=== PATIENT | female | born 1955 ===

== ENCOUNTER → 2020-06-19 11:12 | Outpatient (BNVA) | payer MEDICARE, MEDICAID, SELFPAY | PROVIDERS: PCP Physician Assistant; Visit Provider Hospitalist | DX: J44.1 Chronic obstructive pulmonary disease with (acute) exacerbation (principal); J38.3 Other diseases of vocal cords; J40 Bronchitis, not specified as acute or chronic | CPT/HCPCS: 99212 ==

== ENCOUNTER 2020-09-25 12:55 | Outpatient (REF) | payer MEDICARE, MEDICAID, SELFPAY ==
--- NOTE | 2020-09-25 | PFT_ITS ---
Forced vital capacity, FEV1, QSL69-57, and MVV are all normal. Post bronchodilator therapy, no significant change. Total lung capacity and residual volume normal. Diffusion capacity slightly decreased. CONCLUSION: Normal pulmonary function test. Slight decrease in diffusion capacity may be due to technical reason or due to non-pulmonary factors. Clinical correlation is recommended. MD TRACY Leos/JOELLEN / [id number]
== END 2020-09-25 12:56 | disposition home or self-care (01) ==
LOC: HO.RESP 12:55
PROVIDERS: Visit Provider Hospitalist
DX: J41.0 Simple chronic bronchitis (principal); R06.02 Shortness of breath
CPT/HCPCS: 94060; 94727; 94729; 99212

== ENCOUNTER → 2021-01-04 10:49 | Outpatient (BNVA) | payer MEDICARE, MEDICAID, SELFPAY | PROVIDERS: PCP Physician Assistant; Visit Provider Hospitalist | DX: J44.1 Chronic obstructive pulmonary disease with (acute) exacerbation (principal); J38.3 Other diseases of vocal cords; R05 Cough; Z79.899 Other long term (current) drug therapy | CPT/HCPCS: 99212 ==

== ENCOUNTER 2021-02-05 10:59 | Outpatient (REF) | payer MEDICARE, MEDICAID, SELFPAY ==
[2021-02-05 12:22] LABS: MANUAL DIFF FLAG NO
[2021-02-05 12:38] LABS: Basophils Percent Auto 0.6 % (0-2); Eosinophils Percent Auto 0.6 % (0-4); Hematocrit 40.5 % (37-47); Hemoglobin 13.8 g/dl (12.0-16.0); Imm Gran Abs Auto 0.03 X10*3/uL (0.00-0.03); Imm Gran Pct Auto 0.4 % (0.0-0.4); Lymphocytes Absolute Auto 1.4 X10*3/uL (1.2-4.9); Lymphocytes Percent Auto 19.6 % (20-40); Mean Corpuscular HGB Conc 34.1 g/dl (31.0-35.0); Mean Corpuscular Hemoglobin 32.4 pg (27.0-33.0); Mean Corpuscular Volume 95.1 fL (80-98); Monocytes Absolute Auto 0.8 X10*3/uL (0.1-1.2); Monocytes Percent Auto 11.1 % (2-11); Neutrophils Absolute Auto 4.7 X10*3/uL (2.0-8.3); Neutrophils Percent Auto 67.7 % (45-73); Platelet Count 241 X10*3/uL (160-400); Red Blood Count 4.26 X10*6/uL (4.20-5.50); Red Cell Distribution Width 12.3 % (11.0-16.0); White Blood Count 6.9 X10*3/uL (4.8-10.8)
[2021-02-05 13:44] LABS: Erythrocyte Sedimentation Rate 2 MM/HR (0-20)
[2021-02-08 14:06] LABS: IgA 179 mg/dL (70-320); IgG 705 mg/dL (600-1540); IgM 144 mg/dL (50-300)
[2021-02-08 19:52] LABS: Immunoglobulin G Subclass 1 395 mg/dL (382-929); Immunoglobulin G Subclass 2 167 mg/dL (241-700); Immunoglobulin G Subclass 3 17 mg/dL (22-178); Immunoglobulin G Subclass 4 36.9 mg/dL (4-86); Immunoglobulin G Total 715 mg/dL (600-1540)
[2021-02-09 05:26] LABS: Immunoglobulin E 40 kU/L (<OR=114)
== END 2021-02-05 11:00 | disposition home or self-care (01) ==
LOC: HO.LAB 10:59
PROVIDERS: PCP Physician Assistant; Visit Provider Hospitalist
DX: J44.1 Chronic obstructive pulmonary disease with (acute) exacerbation (principal); R05.9 Cough, unspecified; J38.3 Other diseases of vocal cords
CPT/HCPCS: 36415; 82784; 82785; 85025; 85652; 86003; 99212

== ENCOUNTER → 2021-05-11 11:21 | Outpatient (BNVA) | payer MEDICARE, MEDICAID, SELFPAY | PROVIDERS: Visit Provider Hospitalist | DX: J44.1 Chronic obstructive pulmonary disease with (acute) exacerbation (principal); J40 Bronchitis, not specified as acute or chronic; R05.9 Cough, unspecified; K21.9 Gastro-esophageal reflux disease without esophagitis; J38.3 Other diseases of vocal cords | CPT/HCPCS: 99212 ==

== ENCOUNTER → 2021-09-06 14:17 | Outpatient (BNVA) | payer MEDICARE, MEDICAID, SELFPAY | PROVIDERS: Visit Provider Hospitalist | DX: J44.1 Chronic obstructive pulmonary disease with (acute) exacerbation (principal); J38.3 Other diseases of vocal cords; K21.9 Gastro-esophageal reflux disease without esophagitis; Z79.899 Other long term (current) drug therapy | CPT/HCPCS: 99212 ==

== ENCOUNTER → 2022-01-14 13:03 | Outpatient (BNVA) | payer MEDICARE, MEDICAID, SELFPAY | PROVIDERS: Visit Provider Hospitalist | DX: J44.1 Chronic obstructive pulmonary disease with (acute) exacerbation (principal); J38.3 Other diseases of vocal cords; K21.9 Gastro-esophageal reflux disease without esophagitis; Z79.899 Other long term (current) drug therapy | CPT/HCPCS: 99212 ==

== ENCOUNTER → 2022-09-26 11:22 | Outpatient (BNVA) | payer MEDICARE, MEDICAID, SELFPAY | PROVIDERS: PCP Family Medicine; Visit Provider Hospitalist | DX: R05.3 Chronic cough (principal); J38.3 Other diseases of vocal cords; K21.9 Gastro-esophageal reflux disease without esophagitis | CPT/HCPCS: 99212 ==

== ENCOUNTER 2023-06-07 11:33 | Outpatient (AMB) | payer MEDICARE, MEDICAID, SELFPAY ==
--- NOTE | 2023-06-07 11:40 | MHC.OFFVIS ---
Intake Vital Signs 06/07/23 11:43 Height 5 ft 3 in Weight 140 lb BMI 24.8 Pulse 90 Pulse Source Pulse Oximeter Pulse Oximetry (%) 96 Oxygen Delivery Method Room Air Intake Visit Reasons: Cough Leather Roller Required: No Allergies No Known Allergies Allergy (Verified 06/07/23 11:44) HPI HPI Comments History of Present Illness Details The patient is a 68 y/o woman with a history of vocal cord dysfunction in addition to COPD. 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 The surgery have been many years ago and I do not have any documentation. She has been using the Breo with good effect. She also has been using the Tessalon Perles which have effectively helped her cough. Her cough spasms resulting in gagging and also dizziness. There happen more often specially at nighttime. She feels stressed is also likely contributing to her worsening cough. We did talk about potentially performing a bronchoscopy if no better. She does describe a fullness in her throat. We did perform a spirometry which demonstrated significant small airways disease. She then responded very good to DuoNeb therapy. Her breathing also improved. 09/07/2021 the patient is here for a pulmonary follow-up visit. She did follow-up with ENT. Did diagnose her with the vocal cord paralysis and also with laryngeal spasms. She was then referred to speech therapy. It is not clear if she went for 1 session or she had multiple sessions. She still concerned about her respiratory status. Explained to her that laryngeal spasms and vocal cord paralysis are very difficult to treat due to limited options. However, she speech therapy is very important in to continue. Therefore will refer her to the speech pathologist here at [place]. In the meantime she continues on the Breo. She does have An obstructive airway component and therefore the Breo has been helpful in controlling those symptoms. She has not required any prednisone which is reassuring. 01/14/2022 the patient is here I did bookstore and she tries to refrain from coughing as much as possible. She will be starting speech therapy soon. In the meantime she does continue to use the Breo with good effect. The patient also can use cough syrup with codeine as needed for further cough suppression. Again, we did review her last CT scan was back in May 2021 without any pulmonary parenchyma noted. 09/26/2022 The patient is here for a pulmonary follow up visit. The patient is doing well. Still having issues with dyspnea, mild to moderate. Secondary to her VCD and partial paralysis. She did f/u with [facility]. they did not recommend the botox based on the fact that it may worsen the VCD. She has been participating with speech therapy. Still has an intermittent cough, moderate in severity. Will try Benzonates as needed. She also responded well to magic mouthwash, although too expensive. Will rx Lidocaine and she can use the goodrx card. 06/07/2023 the patient is here for a pulmonary follow-up visit. 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 She does struggle with this because is hard for her to breathe or laugh out loud because of the difficulty with her ventilation and also because it worsens her cough. She did not really get much recommendations at [facility]. They recommended to continue with the speech therapy. At this point she is also using the Breo. She feels the Breo has been somewhat effective for. She did try Flovent it was not that helpful. We talked about different devices that can provide her some relief. One of those devices called the breather. Is meant to help strengthen the muscles of the larynx the lungs and also of the vocal cords. The patient will talk to her speech therapy to see if the something that they recommend as well and she consider either getting it covered or buying it [id number]. I did give her information about it. Therefore will continue with the current respiratory therapy and will follow-up in the fall. The patient has any issues prior to that she will call the office for an earlier assessment. [facility] Medical History (Updated 06/07/23 @ 18:15 by Nick Flores MD) Vocal cord paralysis Laryngospasm GERD (gastroesophageal reflux disease) Chronic cough Vocal cord dysfunction COPD (chronic obstructive pulmonary disease) Bronchitis Social History (Updated 09/26/22 @ 11:28 by ANTHONY Beckett) Patient Tobacco Use Status: Never used Tobacco Review of Systems Const Denies night sweats ENT Denies change in voice, Denies lip swelling, Denies mouth pain, Reports nasal congestion, Reports nasal discharge and Denies tongue swelling Card Denies chest pain, Denies dyspnea and Reports dyspnea on exertion Resp Denies chest congestion, Reports cough, Denies dyspnea, Reports dyspnea on exertion and Reports stridor GI Denies abdominal pain Musc Denies no additional complaints Neuro Denies Neuro-related abnormal movements Psych Denies no additional complaints Fritz/Lymph Denies easy bleeding and Denies lymphadenopathy Aller/Immun Denies lip swelling and Denies tongue swelling Physical Exam Vital Signs: Last Vital Signs Pulse 90 06/07/23 11:43 Pulse Ox 96 06/07/23 11:43 Oxygen Delivery Method Room Air 06/07/23 11:43 BMI result Body Mass Index 24.8 Const General: alert Neck Neck: Yes normal visual inspection, Yes full ROM, Yes no lymphadenopathy, Yes supple and Yes other (+stridor) Chest Chest palpation & inspection: normal inspection of the chest Resp Effort & Inspection: normal respiratory effort and stridor Auscultation: no rhonchi, no wheezes and diminished lung sounds Cardio Rate: regular rate Rhythm: regular rhythm Heart sounds: S1 normal heart sound present and S2 normal heart sound present GI Palpation (GI): Soft to palpation and nontender Auscultation: normal bowel sounds Skin General skin exam: rashes and/or lesions noted Assessment & Plan Assessment & Plan (1) Chronic cough: Code(s): R05 - Cough (2) Vocal cord dysfunction: Code(s): J38.3 - Other diseases of vocal cords (3) GERD (gastroesophageal reflux disease): Code(s): K21.9 - Gastro-esophageal reflux disease without esophagitis Qualifiers: Esophagitis presence: without esophagitis Qualified Code(s): K21.9 - Gastro-esophageal reflux disease without esophagitis (4) Vocal cord paralysis: Code(s): J38.00 - Paralysis of vocal cords and larynx, unspecified Plan continue Breo reflux diet speech therapy as needed consider breathing device/ The breather to strenghen her respiratory muscles Spirometry next visit F/U Fall 2023 Coding Level of Care Code Est Pt Level 4 (71426) Diagnoses Chronic cough R05 Vocal cord dysfunction J38.3 Gastroesophageal reflux disease without esophagitis K21.9 Esophagitis presence: without esophagitis Vocal cord paralysis J38.00 Time Spent (min) 19
[2023-06-07 11:43] VITALS: PULSE 90; O2SAT 96; BMI 24.8
== END 2023-06-07 12:11 | disposition home or self-care (01) ==
PROVIDERS: PCP Family Medicine; Visit Provider Hospitalist
DX: R05.9 Cough, unspecified (principal); J38.3 Other diseases of vocal cords; K21.9 Gastro-esophageal reflux disease without esophagitis; J38.00 Paralysis of vocal cords and larynx, unspecified
CPT/HCPCS: 99214

== ENCOUNTER → 2023-06-07 11:33 | Outpatient (BNVA) | payer MEDICARE, MEDICAID, SELFPAY | PROVIDERS: PCP Family Medicine; Visit Provider Hospitalist | DX: J38.3 Other diseases of vocal cords (principal); R05.9 Cough, unspecified; K21.9 Gastro-esophageal reflux disease without esophagitis; J38.00 Paralysis of vocal cords and larynx, unspecified | CPT/HCPCS: 99212 ==

== ENCOUNTER 2024-02-07 11:28 | Outpatient (AMB) | payer MEDICARE, MEDICAID, SELFPAY ==
[2024-02-07 11:36] VITALS: BP 118/70; PULSE 89; O2SAT 96; BMI 24.8
--- NOTE | 2024-02-07 11:36 | A.OFFVIS_ITS ---
Vital Signs 02/07/24 11:36 Height 5 ft 3 in Weight 139 lb 15.896 oz BMI 24.8 BP 118/70 Blood Pressure Location Rt brachial Position Sitting Pulse 89 Pulse Source Pulse Oximeter Pulse Oximetry (%) 96 Oxygen Delivery Method Room Air Intake Visit Reasons: Cough Gis Web Developer Required: No Allergies No Known Allergies Allergy (Verified 02/07/24 11:38) HPI Comments Details: The patient is a 69 y/o woman with a history of vocal cord dysfunction in addition to COPD. 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 The surgery have been many years ago and I do not have any documentation. She has been using the Breo with good effect. She also has been using the Tessalon Perles which have effectively helped her cough. Her cough spasms resulting in gagging and also dizziness. There happen more often specially at nighttime. She feels stressed is also likely contributing to her worsening cough. We did talk about potentially performing a bronchoscopy if no better. She does describe a fullness in her throat. We did perform a spirometry which demonstrated significant small airways disease. She then responded very good to DuoNeb therapy. Her breathing also improved. 09/07/2021 the patient is here for a pulmonary follow-up visit. She did follow-up with ENT. Did diagnose her with the vocal cord paralysis and also with laryngeal spasms. She was then referred to speech therapy. It is not clear if she went for 1 session or she had multiple sessions. She still concerned about her respiratory status. Explained to her that laryngeal spasms and vocal cord paralysis are very difficult to treat due to limited options. However, she speech therapy is very important in to continue. Therefore will refer her to the speech pathologist here at [place]. In the meantime she continues on the Breo. She does have An obstructive airway component and therefore the Breo has been helpful in controlling those symptoms. She has not required any prednisone which is reassuring. 01/14/2022 the patient is here I did bookstore and she tries to refrain from coughing as much as possible. She will be starting speech therapy soon. In the meantime she does continue to use the Breo with good effect. The patient also can use cough syrup with codeine as needed for further cough suppression. Again, we did review her last CT scan was back in May 2021 without any pulmonary parenchyma noted. 09/26/2022 The patient is here for a pulmonary follow up visit. The patient is doing well. Still having issues with dyspnea, mild to moderate. Secondary to her VCD and partial paralysis. She did f/u with [facility]. they did not recommend the botox based on the fact that it may worsen the VCD. She has been participating with speech therapy. Still has an intermittent cough, moderate in severity. Will try Benzonates as needed. She also responded well to magic mouthwash, although too expensive. Will rx Lidocaine and she can use the goodrx card. 06/07/2023 the patient is here for a pulmonary follow-up visit. 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 She does struggle with this because is hard for her to breathe or laugh out loud because of the difficulty with her ventilation and also because it worsens her cough. She did not really get much recommendations at [facility]. They recommended to continue with the speech therapy. At this point she is also using the Breo. She feels the Breo has been somewhat effective for. She did try Flovent it was not that helpful. We talked about different devices that can provide her some relief. One of those devices called the breather. Is meant to help strengthen the muscles of the larynx the lungs and also of the vocal cords. The patient will talk to her speech therapy to see if the something that they recommend as well and she consider either getting it covered or buying it [id number]. I did give her information about it. Therefore will continue with the current respiratory therapy and will follow-up in the fall of 2023. The patient has any issues prior to that she will call the office for an earlier assessment. 02/07/2024 the patient is here for a pulmonary follow-up visit. Overall the patient had been doing well. She continues to have chronic issues with vocal cord dysfunction but she is working closely with speech therapy and they have been very helpful in helping her deal better with her symptoms. In addition to that she continues on the Breo inhaler. This has been helpful. No recent imaging studies to review at this time. The patient is having issue with her knees. She is trying to avoid knee surgery. I do agree that general anesthesia and intubation could potentially irritate the vocal cords further. No recent imaging studies to review at this time. Patient will return in about 6-8 months. If she has any issues prior to that she will call for an earlier asses sment. [facility] Medical History (Updated 06/07/23 @ 18:15 by Nick Flores MD) Vocal cord paralysis Laryngospasm GERD (gastroesophageal reflux disease) Chronic cough Vocal cord dysfunction COPD (chronic obstructive pulmonary disease) Bronchitis Social History (Updated 09/26/22 @ 11:28 by Itzel Bethea [facility]) Patient Tobacco Use Status: Never used Tobacco Review of Systems Const Denies night sweats ENT Denies change in voice, Denies lip swelling, Denies mouth pain, Reports nasal congestion, Reports nasal discharge and Denies tongue swelling Card Denies chest pain, Denies dyspnea and Reports dyspnea on exertion Resp Denies chest congestion, Reports cough, Denies dyspnea, Reports dyspnea on exertion and Reports stridor GI Denies abdominal pain Musc Denies no additional complaints Neuro Denies Neuro-related abnormal movements Psych Denies no additional complaints Fritz/Lymph Denies easy bleeding and Denies lymphadenopathy Aller/Immun Denies lip swelling and Denies tongue swelling Physical Exam Vital Signs: Last Vital Signs Pulse 89 02/07/24 11:36 BP 118/70 02/07/24 11:36 Pulse Ox 96 02/07/24 11:36 Oxygen Delivery Method Room Air 02/07/24 11:36 BMI result Body Mass Index 24.8 Const General: alert Neck Neck: Yes normal visual inspection, Yes full ROM, Yes no lymphadenopathy, Yes supple and Yes other (+stridor) Chest Chest palpation & inspection: normal inspection of the chest Resp Effort & Inspection: normal respiratory effort and no stridor Auscultation: no rhonchi, no wheezes and diminished lung sounds Cardio Rate: regular rate Rhythm: regular rhythm Heart sounds: S1 normal heart sound present and S2 normal heart sound present GI Palpation (GI): Soft to palpation and nontender Auscultation: normal bowel sounds Skin General skin exam: rashes and/or lesions noted Assessment & Plan Assessment & Plan (1) Chronic cough: Code(s): R05 - Cough Category: Medical (2) Vocal cord dysfunction: Code(s): J38.3 - Other diseases of vocal cords Category: Medical (3) GERD (gastroesophageal reflux disease): Code(s): K21.9 - Gastro-esophageal reflux disease without esophagitis Category: Medical Qualifiers: Esophagitis presence: without esophagitis Qualified Code(s): K21.9 - Gastro-esophageal reflux disease without esophagitis (4) Vocal cord paralysis: Code(s): J38.00 - Paralysis of vocal cords and larynx, unspecified Category: Medical Plan continue Breo reflux diet speech therapy as needed consider breathing device/ The breather to strenghen her respiratory muscles Spirometry next visit F/U 8-10 months Coding Level of Care Code Est Pt Level 4 (66192) Diagnoses Chronic cough R05 Vocal cord dysfunction J38.3 Gastroesophageal reflux disease without esophagitis K21.9 Esophagitis presence: without esophagitis Vocal cord paralysis J38.00 Time Spent (min) 16
== END 2024-02-07 11:55 | disposition home or self-care (01) ==
PROVIDERS: PCP Family Medicine; Visit Provider Hospitalist
DX: R05.9 Cough, unspecified (principal); J38.3 Other diseases of vocal cords; K21.9 Gastro-esophageal reflux disease without esophagitis; J38.00 Paralysis of vocal cords and larynx, unspecified
CPT/HCPCS: 99214

== ENCOUNTER → 2024-02-07 11:28 | Outpatient (BNVA) | payer MEDICARE, MEDICAID, SELFPAY | PROVIDERS: PCP Family Medicine; Visit Provider Hospitalist | DX: J38.3 Other diseases of vocal cords (principal); J38.00 Paralysis of vocal cords and larynx, unspecified; R05.3 Chronic cough; K21.9 Gastro-esophageal reflux disease without esophagitis | CPT/HCPCS: 99212 ==

== ENCOUNTER 2024-10-23 11:36 | Outpatient (AMB) | payer MEDICARE, MEDICAID, SELFPAY ==
[2024-10-23 11:37] VITALS: BP 128/74; PULSE 87; O2SAT 96; BMI 24.8
--- NOTE | 2024-10-23 11:37 | A.OFFVIS_ITS ---
Vital Signs 10/23/24 11:37 Height 5 ft 3 in Weight 139 lb 15.896 oz BMI 24.8 BP 128/74 Blood Pressure Location Lt brachial Position Sitting Pulse 87 Pulse Source Pulse Oximeter Pulse Oximetry (%) 96 Oxygen Delivery Method Room Air Intake Visit Reasons: Cough Carpenter Required: No Accompanied by: Self / Same As Patient Allergies No Known Allergies Allergy (Verified 10/23/24 11:40) HPI Comments Details: The patient is a 69 y/o woman with a history of vocal cord dysfunction in addition to COPD. 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 The surgery have been many years ago and I do not have any documentation. She has been using the Breo with good effect. She also has been using the Tessalon Perles which have effectively helped her cough. Her cough spasms resulting in gagging and also dizziness. There happen more often specially at nighttime. She feels stressed is also likely contributing to her worsening cough. We did talk about potentially performing a bronchoscopy if no better. She does describe a fullness in her throat. We did perform a spirometry which demonstrated significant small airways disease. She then responded very good to DuoNeb therapy. Her breathing also improved. 09/07/2021 the patient is here for a pulmonary follow-up visit. She did follow-up with ENT. Did diagnose her with the vocal cord paralysis and also with laryngeal spasms. She was then referred to speech therapy. It is not clear if she went for 1 session or she had multiple sessions. She still concerned about her respiratory status. Explained to her that laryngeal spasms and vocal cord paralysis are very difficult to treat due to limited options. However, she speech therapy is very important in to continue. Therefore will refer her to the speech pathologist here at [place]. In the meantime she continues on the Breo. She does have An obstructive airway component and therefore the Breo has been helpful in controlling those symptoms. She has not required any prednisone which is reassuring. 01/14/2022 the patient is here I did bookstore and she tries to refrain from coughing as much as possible. She will be starting speech therapy soon. In the meantime she does continue to use the Breo with good effect. The patient also can use cough syrup with codeine as needed for further cough suppression. Aga in, we did review her last CT scan was back in May 2021 without any pulmonary parenchyma noted. 09/26/2022 The patient is here for a pulmonary follow up visit. The patient is doing well. Still having issues with dyspnea, mild to moderate. Secondary to her VCD and partial paralysis. She did f/u with [facility]. they did not recommend the botox based on the fact that it may worsen the VCD. She has been participating with speech therapy. Still has an intermittent cough, moderate in severity. Will try Benzonates as needed. She also responded well to magic mouthwash, although too expensive. Will rx Lidocaine and she can use the goodrx card. 06/07/2023 the patient is here for a pulmonary follow-up visit. 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 She does struggle with this because is hard for her to breathe or laugh out loud because of the difficulty with her ventilation and also because it worsens her cough. She did not really get much recommendations at [facility]. They recommended to continue with the speech therapy. At this point she is also using the Breo. She feels the Breo has been somewhat effective for. She did try Flovent it was not that helpful. We talked about different devices that can provide her some relief. One of those devices called the breather. Is meant to help strengthen the muscles of the larynx the lungs and also of the vocal cords. The patient will talk to her speech therapy to see if the something that they recommend as well and she consider either getting it covered or buying it [id number]. I did give her information about it. Therefore will continue with the current respiratory therapy and will follow-up in the fall. The patient has any issues prior to that she will call the office for an earlier assessment. 02/07/2024 the patient is here for a pulmonary follow-up visit. Overall the patient had been doing well. She continues to have chronic issues with vocal cord dysfunction but she is working closely with speech therapy and they have been very helpful in helping her deal better with her symptoms. In addition to that she continues on the Breo inhaler. This has been helpful. No recent imaging studies to review at this time. The patient is having issue with her knees. She is trying to avoid knee surgery. I do agree that general anesthesia and intubation could potentially irritate the vocal cords further. No recent imaging studies to review at this time. Patient will return in about 6-8 months. If she has any issues prior to that she will call for an earlier assessment. 10/23/2024 the patient is here for sick visit. She has been having worsening respiratory symptoms and cough in the last fit several weeks. She went to see her primary care doctor who prescribed her a course of amoxicillin I believe per the patient's report. No significant improvement though. She does feel like she has significant chest congestion that gets stuck in her throat. Sometimes the cough can be croupy in nature. When she starts coughing is significant coughing spasms the cause her some difficulty with her breathing and sometimes he gets dizzy. She also complains of sometimes micro aspirating or aspirating her oral secretions to her airway. Will have to further evaluate that with a modified barium swallow. She does have a speech pathologist at [facility] that we can request the study from. In the meantime the patient continues use her inhalers as prescribed. She also complains of a postnasal drip likely vasomotor rhinitis. Will go ahead and start her on doxycycline and also she can start course of prednisone to help her with the stridor. The patient also can try chlorhexidine mouthwash especially if she is having some degree of micro aspirations I can lead to infections. The patient will need cough medication to minimize her coughing spells lingering goes spasms. And she will have to work closely with her speech pathologist. Will go ahead and request a modified barium swallow and will follow-up with the patient is 6 weeks. If she has any issues prior to this she will call for an earlier assessment. [facility] Medical History (Updated 10/23/24 @ 18:16 by Nick Flores MD) Vocal cord paralysis Laryngospasm GERD (gastroesophageal reflux disease) Chronic cough Vocal cord dysfunction COPD (chronic obstructive pulmonary disease) Bronchitis Social History Patient Tobacco Use Status: Never used Tobacco Review of Systems Const Denies night sweats ENT Denies change in voice, Denies lip swelling, Denies mouth pain, Reports nasal congestion, Reports nasal discharge and Denies tongue swelling Card Denies chest pain, Denies dyspnea and Reports dyspnea on exertion Resp Reports chest congestion, Reports cough, Denies dyspnea, Reports dyspnea on ex ertion and Reports stridor GI Denies abdominal pain Musc Denies no additional complaints Neuro Denies Neuro-related abnormal movements Psych Denies no additional complaints Fritz/Lymph Denies easy bleeding and Denies lymphadenopathy Aller/Immun Denies lip swelling and Denies tongue swelling Physical Exam Vital Signs: Last Vital Signs Pulse 87 10/23/24 11:37 BP 128/74 10/23/24 11:37 Pulse Ox 96 10/23/24 11:37 Oxygen Delivery Method Room Air 10/23/24 11:37 BMI result Body Mass Index 24.8 Const General: alert Neck Neck: Yes normal visual inspection, Yes full ROM, Yes no lymphadenopathy, Yes supple and Yes other (+stridor) Chest Chest palpation & inspection: normal inspection of the chest Resp Effort & Inspection: normal respiratory effort and no stridor Auscultation: no rhonchi, no wheezes and diminished lung sounds Cardio Rate: regular rate Rhythm: regular rhythm Heart sounds: S1 normal heart sound present and S2 normal heart sound present GI Palpation (GI): Soft to palpation and nontender Auscultation: normal bowel sounds Skin General skin exam: rashes and/or lesions noted Assessment & Plan Assessment & Plan (1) Chronic cough: Code(s): R05 - Cough Category: Medical (2) Vocal cord dysfunction: Code(s): J38.3 - Other diseases of vocal cords Category: Medical (3) GERD (gastroesophageal reflux disease): Code(s): K21.9 - Gastro-esophageal reflux disease without esophagitis Category: Medical Qualifiers: Esophagitis presence: without esophagitis Qualified Code(s): K21.9 - Gastro-esophageal reflux disease without esophagitis (4) Vocal cord paralysis: Code(s): J38.00 - Paralysis of vocal cords and larynx, unspecified Category: Medical (5) Tracheobronchitis: Code(s): J40 - Bronchitis, not specified as acute or chronic Category: Medical Plan continue Breo reflux diet Modified Barium swallow-CDH cough medicine start Doxycycline BID Start Prednisone taper Start Chlorhexadine MW daily consider breathing device/ The breather to strenghen her respiratory muscles Spirometry next visit F/U 3-4 months Orders: Orders FL Modified Barium Swallow Today R13.10 - Dysphagia, unspecified Medications: New doxycycline monohydrate 100 mg PO BID 28 tabs 0RF 14 days prednisone PO daily; Take 2 tabs daily x 5 days, then 1 tablet daily x 5 days 15 tabs 0RF 10 days codeine-guaifenesin 10-100 mg/5 mL 10 mL PO Q6H PRN 300 mL 0RF cough 10 days chlorhexidine gluconate 0.12% 15 mL buccal DAILY 473 mL 1RF 30 days Coding Level of Care Code Est Pt Level 4 (75832) Complex EM visit Add On G2211 Diagnoses Chronic cough R05 Vocal cord dysfunction J38.3 Gastroesophageal reflux disease without esophagitis K21.9 Esophagitis presence: without esophagitis Vocal cord paralysis J38.00 Tracheobronchitis J40 Time Spent (min) 18
== END 2024-10-23 12:10 | disposition home or self-care (01) ==
LOC: HO.HPS 11:36
PROVIDERS: PCP Family Medicine; Visit Provider Hospitalist
DX: R05.9 Cough, unspecified (principal); J38.3 Other diseases of vocal cords; K21.9 Gastro-esophageal reflux disease without esophagitis; J38.00 Paralysis of vocal cords and larynx, unspecified; J40 Bronchitis, not specified as acute or chronic
CPT/HCPCS: 99214; G2211

== ENCOUNTER → 2024-10-23 11:36 | Outpatient (BNVA) | payer MEDICARE, MEDICAID, SELFPAY | PROVIDERS: PCP Family Medicine; Visit Provider Hospitalist | DX: J38.5 Laryngeal spasm (principal); R05.3 Chronic cough; K21.9 Gastro-esophageal reflux disease without esophagitis | CPT/HCPCS: 99212 ==

== ENCOUNTER 2024-11-28 13:46 | Outpatient (AMB) | payer MEDICARE, MEDICAID, SELFPAY ==
--- OUTSIDE RECORDS SUMMARY | 2024-11-28 13:49 | XMS_ITS | Encounter Summary ---
Author Organization [facility] Address [address] [place] [id number] Phone Care Team Providers Care [employer] Name Role Phone Humberto Price MD Unavailable [phone] Ana Plascencia DO Primary Care Provider Safia Figueroa PRINTER SLOTTER FEEDER Primary Care Provider Ana Plascencia DO Primary Care Provider Yoselin Dunaway TEXTILE ARTIST Primary Care Provider Luis Garcia MD Unavailable [phone] Luis Garcia MD Primary Care Provider [phone] Encounter Details Date Type Department Care Team (Late st Contact Info) Description 09/03/2021 Procedure Pass [facility], [address] [address] Social History Tobacco Use Types Packs/Day Years Used Date Smoking Tobacco: Never Smokeless Tobacco: Never Alcohol Use Standard Drinks/Week Comments Not Currently 0 (1 standard drink = 0.6 oz pur e alcohol) monthly Comments No Sex and Gender Information Value Date Recorded Sex Assigned at Female 04/04/2022 1:20 PM EST Legal Sex Female 11:32 AM EDT Gender Identity Female 04/04/2022 1:20 PM EST Sexual Orientation Choose not to disclose 2021 1:20 PM EST Occupation Industry Job Start Date Job End Date retired Not on file Not on file Not on file documented as of this encounter Plan of Treatment Upcoming Encounters Date Type Department Care Team (Late st Contact Info) Description 12/26/2024 2:30 PM EDT Office Visit [facility] Family Medicine [address] [place] [address] Luis Garcia MD [address] [facility], [address] [place] [address] juan 01/21/2025 3:00 PM EDT Office Visit [facility] [address] [place] [address] Toyin Jane MD [address] [place] [phone] [email or web address] 01/30/2025 3:00 PM EDT Procedure visit [facility] Plastic Surgery [address] [place] [address] Lanre Hyman MD [address] [place] [address] 02/11/2025 11:00 AM EDT Office Visit [facility] Plastic Surgery [address] [place] [address] Mima Paul PA-C [address] [place] [phone] documented as of this encounter Visit Diagnoses Not on filedocumented in this encounter Additional Health Concerns Infection Onset Date Last Indicated Resolved Time CoV-Risk 04/04/2022 04/04/2022 04/15/2022 1:54 AM EST documented as of this encounter Care Teams [employer] Relationship Specialty Start Date End Date Ana Plascencia DO [address] [place] [id number] PCP - General Family Medicine 07/06/21 03/14/22 Safia Figueroa NP [address] [place] [phone] PCP - General Family Medicine 03/15/22 03/21/22 Ana Plascencia DO [address] [place] [address] PCP - General Family Medicine 03/22/22 06/02/24 Yoselin Dunaway FNP [address] [place] [address] [address]. [address] [place] [address] [email or web address] PCP - General Nurse Practitioner 06/03/24 07/04/24 Luis Garcia MD [address] [place] [address], [address] [place] [address] juan PCP - General Internal Medicine 07/05/24 Humberto Price MD [address] [place] [phone] [email or web address] Historical LMR Provider 02/26/17 07/04/24 Luis Garcia MD [address] [place] [address], [address] [place] [address] juan Internal Medicine 07/05/24 documented as of this encounter Additional Source Comments The information contained in this document represents components of the legal health record. It is not the complete legal health record.[facility]
[2024-11-28 13:54] VITALS: BP 134/82; PULSE 105; O2SAT 95; BMI 24.0
--- NOTE | 2024-11-28 13:54 | MHC.OFFVIS ---
Vital Signs 11/28/24 13:54 Height 5 ft 3 in Weight 135 lb 9.349 oz BMI 24.0 BP 134/82 Blood Pressure Location Lt brachial Position Sitting Pulse 105 H Pulse Source Pulse Oximeter Pulse Oximetry (%) 95 Oxygen Delivery Method Room Air Intake Visit Reasons: Cough Coal Shooter Required: No Accompanied by: Self / Same As Patient Allergies No Known Allergies Allergy (Verified 11/28/24 13:57) HPI Comments Details: The patient is a 69 y/o woman with a history of vocal cord dysfunction in addition to COPD. 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 The surgery have been many years ago and I do not have any documentation. She has been using the Breo with good effect. She also has been using the Tessalon Perles which have effectively helped her cough. Her cough spasms resulting in gagging and also dizziness. There happen more often specially at nighttime. She feels stressed is also likely contributing to her worsening cough. We did talk about potentially performing a bronchoscopy if no better. She does describe a fullness in her throat. We did perform a spirometry which demonstrated significant small airways disease. She then responded very good to DuoNeb therapy. Her breathing also improved. 09/07/2021 the patient is here for a pulmonary follow-up visit. She did follow-up with ENT. Did diagnose her with the vocal cord paralysis and also with laryngeal spasms. She was then referred to speech therapy. It is not clear if she went for 1 session or she had multiple sessions. She still concerned about her respiratory status. Explained to her that laryngeal spasms and vocal cord paralysis are very difficult to treat due to limited options. However, she speech therapy is very important in to continue. Therefore will refer her to the speech pathologist here at [place]. In the meantime she continues on the Breo. She does have An obstructive airway component and therefore the Breo has been helpful in controlling those symptoms. She has not required any prednisone which is reassuring. 01/14/2022 the patient is here I did bookstore and she tries to refrain from coughing as much as possible. She will be starting speech therapy soon. In the meantime she does continue to use the Breo with good effect. The patient also can use cough syrup with codeine as needed for further cough suppression. Again, we did review her last CT scan was back in May 2021 without any pulmonary parenchyma noted. 09/26/2022 The patient is here for a pulmonary follow up visit. The patient is doing well. Still having issues with dyspnea, mild to moderate. Secondary to her VCD and partial paralysis. She did f/u with [facility]. they did not recommend the botox based on the fact that it may worsen the VCD. She has been participating with speech therapy. Still has an intermittent cough, moderate in severity. Will try Benzonates as needed. She also responded well to magic mouthwash, although too expensive. Will rx Lidocaine and she can use the goodrx card. 06/07/2023 the patient is here for a pulmonary follow-up visit. 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 She does struggle with this because is hard for her to breathe or laugh out loud because of the difficulty with her ventilation and also because it worsens her cough. She did not really get much recommendations at [facility]. They recommended to continue with the speech therapy. At this point she is also using the Breo. She feels the Breo has been somewhat effective for. She did try Flovent it was not that helpful. We talked about different devices that can provide her some relief. One of those devices called the breather. Is meant to help strengthen the muscles of the larynx the lungs and also of the vocal cords. The patient will talk to her speech therapy to see if the something that they recommend as well and she consider either getting it covered or buying it [id number]. I did give her information about it. Therefore will continue with the current respiratory therapy and will follow-up in the fall. The patient has any issues prior to that she will call the office for an earlier assessment. 02/07/2024 the patient is here for a pulmonary follow-up visit. Overall the patient had been doing well. She continues to have chronic issues with vocal cord dysfunction but she is working closely with speech therapy and they have been very helpful in helping her deal better with her symptoms. In addition to that she continues on the Breo inhaler. This has been helpful. No recent imaging studies to review at this time. The patient is having issue with her knees. She is trying to avoid knee surgery. I do agree that general anesthesia and intubation could potentially irritate the vocal cords further. No recent imaging studies to review at this time. Patient will return in about 6-8 months. If she has any issues prior to that she will call for an earlier assessment. 10/23/2024 the patient is here for sick visit. She has been having worsening respiratory symptoms and cough in the last fit several weeks. She went to see her primary care doctor who prescribed her a course of amoxicillin I believe per the patient's report. No significant improvement though. She does feel like she has significant chest congestion that gets stuck in her throat. Sometimes the cough can be croupy in nature. When she starts coughing is significant coughing spasms the cause her some difficulty with her breathing and sometimes he gets dizzy. She also complains of sometimes micro aspirating or aspirating her oral secretions to her airway. Will have to further evaluate that with a modified barium swallow. She does have a speech pathologist at [facility] that we can request the study from. In the meantime the patient continues use her inhalers as prescribed. She also complains of a postnasal drip likely vasomotor rhinitis. Will go ahead and start her on doxycycline and also she can start course of prednisone to help her with the stridor. The patient also can try chlorhexidine mouthwash especially if she is having some degree of micro aspirations I can lead to infections. The patient will need cough medication to minimize her coughing spells lingering goes spasms. And she will have to work closely with her speech pathologist. Will go ahead and request a modified barium swallow and will follow-up with the patient is 6 weeks. If she has any issues prior to this she will call for an earlier assessment. 11/28/2024 the patient is here for a pulmonary follow-up visit. She is finally better. She still struggles with her vocal cord dysfunction but currently at baseline. The patient completed the prednisone also the antibiotics. She did find that the chlorhexidine mouthwash was helpful. She continues use her respiratory therapy as prescribed. No plans for any other changes. I did provide her with cough medication in order for her to alleviate her cough to avoid the significant laryngeal spasms. Patient follow-up in the springtime if she has any issues prior to that she will call for further recommendations. [facility] Medical History (Updated 10/23/24 @ 18:16 by Nick Flores MD) Vocal cord paralysis Laryngospasm GERD (gastroesophageal reflux disease) Chronic cough Vocal cord dysfunction COPD (chronic obstructive pulmonary disease) Bronchitis Social History Patient Tobacco Use Status: Never used Tobacco Review of Systems Const Denies night sweats ENT Denies change in voice, Denies lip swelling, Denies mouth pain, Reports nasal congestion, Reports nasal discharge and Denies tongue swelling Card Denies chest pain, Denies dyspnea and Reports dyspnea on exertion Resp Reports chest congestion, Reports cough, Denies dyspnea, Reports dyspnea on exertion and Reports stridor GI Denies abdominal pain Musc Denies no additional complaints Neuro Denies Neuro-related abnormal movements Psych Denies no additional complaints Fritz/Lymph Denies easy bleeding and Denies lymphadenopathy Aller/Immun Denies lip swelling and Denies tongue swelling Physical Exam Vital Signs: Last Vital Signs Pulse 105 H 11/28/24 13:54 BP 134/82 11/28/24 13:54 Pulse Ox 95 11/28/24 13:54 Oxygen Delivery Method Room Air 11/28/24 13:54 BMI result Body Mass Index 24.0 Const General: alert Neck Neck: Yes normal visual inspection, Yes full ROM, Yes no lymphadenopathy, Yes supple and Yes other (+stridor) Chest Chest palpation & inspection: normal inspection of the chest Resp Effort & Inspection: normal respiratory effort and no stridor Auscultation: no rhonchi, no wheezes and diminished lung sounds Cardio Rate: regular rate Rhythm: regular rhythm Heart sounds: S1 normal heart sound present and S2 normal heart sound present GI Palpation (GI): Soft to palpation and nontender Auscultation: normal bowel sounds Skin General skin exam: rashes and/or lesions noted Assessment & Plan Assessment & Plan (1) Chronic cough: Code(s): R05 - Cough Category: Medical (2) Vocal cord dysfunction: Code(s): J38.3 - Other diseases of vocal cords Category: Medical (3) GERD (gastroesophageal reflux disease): Code(s): K21.9 - Gastro-esophageal reflux disease without esophagitis Category: Medical Qualifiers: Esophagitis presence: without esophagitis Qualified Code(s): K21.9 - Gastro-esophageal reflux disease without esophagitis (4) Vocal cord paralysis: Code(s): J38.00 - Paralysis of vocal cords and larynx, unspecified Category: Medical (5) Tracheobronchitis: Code(s): J40 - Bronchitis, not specified as acute or chronic Category: Medical Plan continue Breo reflux diet cough medicine consider breathing device/ The breather to strenghen her respiratory muscles F/U 6-8 months Medications: Refilled codeine-guaifenesin 10-100 mg/5 mL 10 mL PO Q6H PRN 300 mL 0RF cough 10 days Coding Level of Care Code Est Pt Level 4 (32411) Complex EM visit Add On G2211 Diagnoses Chronic cough R05 Vocal cord dysfunction J38.3 Gastroesophageal reflux disease without esophagitis K21.9 Esophagitis presence: without esophagitis Vocal cord paralysis J38.00 Tracheobronchitis J40 Time Spent (min) 16
== END 2024-11-28 14:24 | disposition home or self-care (01) ==
LOC: HO.HPS 13:47
PROVIDERS: PCP Family Medicine; Visit Provider Hospitalist
DX: R05.9 Cough, unspecified (principal); J38.3 Other diseases of vocal cords; K21.9 Gastro-esophageal reflux disease without esophagitis; J38.00 Paralysis of vocal cords and larynx, unspecified; J40 Bronchitis, not specified as acute or chronic
CPT/HCPCS: 99214; G2211

== ENCOUNTER → 2024-11-28 13:46 | Outpatient (BNVA) | payer MEDICARE, MEDICAID, SELFPAY | PROVIDERS: PCP Family Medicine; Visit Provider Hospitalist | DX: J38.5 Laryngeal spasm (principal); R05.3 Chronic cough; K21.9 Gastro-esophageal reflux disease without esophagitis; J44.9 Chronic obstructive pulmonary disease, unspecified; J40 Bronchitis, not specified as acute or chronic; Z79.899 Other long term (current) drug therapy | CPT/HCPCS: 99212 ==

== ENCOUNTER 2025-03-25 13:25 | Outpatient (AMB) | payer MEDICARE, MEDICAID, SELFPAY ==
[2025-03-25 13:26] VITALS: BP 154/96; PULSE 100; O2SAT 97; BMI 25.7
--- NOTE | 2025-03-25 13:26 | A.OFFVIS_ITS ---
Vital Signs 03/25/25 13:26 Height 5 ft 3 in Weight 145 lb 6 oz BMI 25.7 BP 154/96 H Blood Pressure Location Lt brachial Position Sitting Pulse 100 Pulse Source Pulse Oximeter Pulse Oximetry (%) 97 Oxygen Delivery Method Room Air Intake Visit Reasons: Ongoing congestion, coughing Allergies No Known Allergies Allergy (Verified 03/25/25 13:31) HPI HPI Ongoing congestion, coughing: Details: Tarah is a pleasant 70 year old female, never smoker, with underlying COPD, VCD with left sided vocal cord paralysis, h/o laryngeal spasms s/p thyroid surgery and GERD. She is under the care of Dr. Flores and presents today for an acute visit. She presents with waxing and waning symptoms for the past 3-4 months including upper chest congestion, intermittent croupy cough which then leads to spasms resulting in dyspnea and occasional dizziness. She also notes persistent throat clearing due to sensation of significant mucus in the throat possibly related to post nasal drip, prior allergy work up negative. There was also a question of microaspirations contributing to symptoms secondary to reflux and is currently on Pepcid 2-3 times per day, following with GI intermittently. She uses Breo on a daily basis with moderate effect in addition to chlorhexidine mouthwash PRN. Previously reports improvements with prednisone which she received in October however symptoms recurred placed on doxycycline in addition to a medrol dose pack, with no change in symptoms. Of note patient recently completed course of doxycycline from PCP for tick exposure prophylaxis with continued respiratory symptoms. Denies fevers, occasionally with chills. She denies any known triggers. [facility] Medical History (Updated 10/23/24 @ 18:16 by Nick Flores MD) Vocal cord paralysis Laryngospasm GERD (gastroesophageal reflux disease) Chronic cough Vocal cord dysfunction COPD (chronic obstructive pulmonary disease) Bronchitis Social History Patient Tobacco Use Status: Never used Tobacco Review of Systems Const Denies excessive sweating, Denies fever(s), Denies headache(s) and Denies night sweats Eyes Denies dry eyes, Denies irritation and Denies itchy eyes ENT Reports Normal hearing present, Denies headache(s), Reports nasal congestion and Reports post nasal drip Card Denies chest pain, Denies chest pain at rest, Denies chest pain with activity, Denies claudication, Denies leg edema, Reports dyspnea on exertion, Denies orthopnea and Denies paroxysmal nocturnal dyspnea Resp Denies change in phlegm color, Reports chest congestion, Reports cough, Denies hemoptysis, Reports excessive phlegm production, Denies pain on inspiration, Denies pain with cough, Reports dyspnea on exertion and Denies stridor Musc Denies myalgias Neuro Reports Normal hearing present and Denies headache(s) Endo Denies excessive sweating Fritz/Lymph Denies lymphadenopathy Aller/Immun Denies itchy eyes and Denies seasonal rhinorrhea Physical Exam Vital Signs: Last Vital Signs Pulse 100 03/25/25 13:26 BP 154/96 H 03/25/25 13:26 Pulse Ox 97 03/25/25 13:26 Oxygen Delivery Method Room Air 03/25/25 13:26 BMI result Body Mass Index 25.7 Const General: cooperative, healthy appearing, comfortable, no acute distress, well developed and alert Orientation/consciousness: patient oriented x3 Limitations: no limitations HEENT Head: Yes normal to inspection, Yes normocephalic and Yes atraumatic Ears: hearing grossly normal bilaterally and external ears normal Eyes General: appearance normal, both eyes and all related structures Eyelids: Yes eyelids normal Sclerae: sclerae normal EOM: EOMs intact bilaterally Neck Neck: Yes normal visual inspection and Yes no lymphadenopathy Lymphatic: no lymphadenopathy noted Chest Chest palpation & inspection: normal inspection of the chest Resp Other: persistent throat clearing throughout visit Effort & Inspection: normal respiratory effort, able to speak in complete sentences, no audible wheezes, no cough, no stridor, not tachypneic, no tripod positioning and no use of accessory muscles Auscultation: diminished lung sounds Cardio Jugular venous distension: no JVD Rate: regular rate Rhythm: regular rhythm Skin Other: warm, dry General skin exam: no rashes or lesions noted Neuro General: patient oriented x3 Cranial nerves: Yes Normal hearing present Cognition (Neuro): normal cognition Gait exam (Neuro): Normal gait present Extrem General: Yes normal to inspection, Yes capillary refill normal, Yes no clubbing, cyanosis or edema and Yes no pedal edema Psych Appearance: grossly normal and well kempt Speech and movement: Normal speech and movement present and Clear speech present Affect: normal affect Attitude: cooperative Thought process: Normal thought process present Thought content: Normal thought content present Insight: Good insight present (Psych) Judgement: Good judgement present (Psych) Assessment & Plan Assessment & Plan (1) Chronic cough: Code(s): R05 - Cough Category: Medical (2) Vocal cord dysfunction: Code(s): J38.3 - Other diseases of vocal cords Category: Medical (3) GERD (gastroesophageal reflux disease): Code(s): K21.9 - Gastro-esophageal reflux disease without esophagitis Category: Medical Qualifiers: Esophagitis presence: without esophagitis Qualified Code(s): K21.9 - Gastro-esophageal reflux disease without esophagitis (4) Vocal cord paralysis: Code(s): J38.00 - Paralysis of vocal cords and larynx, unspecified Category: Medical Plan Had long discussion with patient regarding symptoms and multifactorial contribution from COPD, vasomotor rhinitis, reflux and VCD. We reviewed importance of following a reflux diet in addition to bed risers, wedge pillow and avoidance of food intake at least 3 hours prior to bed. Encouraged patient to reach out to GI as current PPI may need to be adjusted. Patient underwent barium swallow through [facility], will attempt to obtain records for follow up with Dr. Flores. Prior RAST negative so allergic component unlikely, however with significant post nasal drip, will trial ipratropium nasal spray. Consider air purifier as well as humidifier during the winter months, maintaining humidity <50% and avoidance of irritants. Reviewed importance of following with speech therapy. Previously patient responded well to prednisone for tracheobronchitis will send and avoid antibiotics at this time as sputum is not purulent. She is aware to call if symptoms do not improve. All questions were answered and patient is in agreement of plan. Will follow up with Dr. Flores for regularly scheduled appointment or sooner if needed. Medications: New ipratropium bromide administer into each nostril 2 sprays intranasal BID PRN 30 mL 3RF allergy symptoms prednisone see taper instructions; 40 mg Daily x3 days, 30 mg daily x3 days, 20 mg daily x3 days, 10 mg daily x3 days 10 mg PO DIRECTED 30 tabs 0RF Coding Level of Care Code Est Pt Level 4 (42421) Complex EM visit Add On G2211 Diagnoses Chronic cough R05 Vocal cord dysfunction J38.3 Gastroesophageal reflux disease without esophagitis K21.9 Esophagitis presence: without esophagitis Vocal cord paralysis J38.00
== END 2025-03-25 14:29 | disposition home or self-care (01) ==
LOC: HO.HPSW 13:26
PROVIDERS: PCP Family Medicine; Visit Provider Nurse Practitioner Family
DX: R05.9 Cough, unspecified (principal); J38.3 Other diseases of vocal cords; K21.9 Gastro-esophageal reflux disease without esophagitis; J38.00 Paralysis of vocal cords and larynx, unspecified
CPT/HCPCS: 99214; G2211

== ENCOUNTER → 2025-03-25 13:25 | Outpatient (BNVA) | payer MEDICARE, MEDICAID, SELFPAY | PROVIDERS: PCP Family Medicine; Visit Provider Nurse Practitioner Family | DX: R05.3 Chronic cough (principal); J38.3 Other diseases of vocal cords; K21.9 Gastro-esophageal reflux disease without esophagitis; J38.00 Paralysis of vocal cords and larynx, unspecified | CPT/HCPCS: 99212 ==